=== PATIENT | female | born 1975 | race Caucasian/White ===

== ENCOUNTER → 2023-05-02 | Outpatient (CLI) | payer BC ==
[~2023-05-02] VITALS: Ht 157.5 cm; Wt 69.7 kg
[~2023-05-02] MED LIST: ALBU8.5H6; LEVO88CA4 PO; THRIVE
== END | disposition home or self-care (01) ==
LOC: PREOP 05:28
PROVIDERS: ATTEND Obstetrics & Gynecology
DX: Z01.818 Encounter for other preprocedural examination (principal)

== ENCOUNTER 2023-05-09 05:55 | Day surgery (SDC) | payer BC ==
[2023-05-09] VITALS (14 sets, daily range): BP systolic 83–152; BP diastolic 36–89
[~2023-05-09] VITALS: Ht 157.5 cm; Wt 69.7 kg
[2023-05-09] MEDS ORDERED: ceFAZolin INJECTION 2,000 MG in NS (IVPB) 50 ML 50 ML IV ONE (06:00)
[2023-05-09] MEDS: LACTATED RINGERS 1,000 ML 1,000 ML IV PRN ×2 (06:23→08:50)
[2023-05-09 06:36] LABS: BASOPHILS # (AUTO) 0.1 10^3/uL (0.0-0.1); BASOPHILS % (AUTO) 2 % (0-10); EOSINOPHILS # (AUTO) 1.1 10^3/uL (0.0-0.3); EOSINOPHILS % (AUTO) 13 % (0-10); HEMATOCRIT 41 % (35-52); HEMOGLOBIN 12.8 g/dL (11.5-16.0); LYMPHOCYTES # (AUTO) 2.2 10^3/uL (1.0-4.0); LYMPHOCYTES % (AUTO) 25 % (12-44); MEAN CORPUSCULAR HEMOGLOBIN 26 pg (25-34); MEAN CORPUSCULAR HGB CONC 32 g/dL (32-36); MEAN CORPUSCULAR VOLUME 83 fL (80-99); MEAN PLATELET VOLUME 9.6 fL (9.0-12.2); MONOCYTES # (AUTO) 0.7 10^3/uL (0.0-1.0); MONOCYTES % (AUTO) 8 % (0-12); NEUTROPHILS # (AUTO) 4.6 10^3/uL (1.8-7.8); NEUTROPHILS % (AUTO) 53 % (42-75); PLATELET COUNT 486 10^3/uL (130-400); WHITE BLOOD COUNT 8.7 10^3/uL (4.3-11.0)
[2023-05-09] MEDS ORDERED: BUPIVACAINE 0.25% 30 ML VIAL ONE (06:52)
[2023-05-09] MEDS ORDERED: dexAMETHasone INJ 10 MG/ML 1 ML VIAL ONE (06:53)
[2023-05-09] MEDS ORDERED: MIDAZOLAM INJ 2 MG/2 ML VIAL ONE (06:53)
[2023-05-09] MEDS ORDERED: GLYCOPYRROLATE INJ 0.2 MG/ML 2 ML VIAL ONE (06:53)
[2023-05-09] MEDS ORDERED: ROCURONIUM 50 MG/5 ML VIAL IV ONE ×2 (06:53→10:31)
[2023-05-09] MEDS ORDERED: fentaNYL INJECTION 100 MCG/2 ML VIAL ONE (06:53)
[2023-05-09] MEDS ORDERED: NEOSTIGMINE 1 MG/1ML 10 ML VIAL ONE (06:53)
[2023-05-09] MEDS ORDERED: ONDANSETRON INJECTION 4 MG/2 ML (SDV) ONE (06:53)
[2023-05-09] MEDS ORDERED: LIDOCAINE PF 2% 5 ML VIAL ONE (06:53)
[2023-05-09] MEDS ORDERED: proPOfol INJECTION 200 MG/20 ML VIAL IV ONE (06:53)
[2023-05-09 07:09] LABS: ANISOCYTOSIS SLIGHT; BASOPHILS % (MANUAL) 2 %; EOSINOPHILS % (MANUAL) 14 %; LYMPHOCYTES % (MANUAL) 24 %; MICROCYTOSIS SLIGHT; MONOCYTES % (MANUAL) 5 %; NEUTROPHILS % (MANUAL) 55 %
--- NOTE | 2023-05-09 07:25 | Progress Note-Pre Operative ---
Pre-Operative Progress Note Date of Available H&P: May 09, 2023 Date H&P Reviewed: May 09, 2023 Time H&P Reviewed: 07:00 History & Physical: H&P Reviewed, No changes noted Pre-Operative Diagnosis: AUB plan for RATLH possible BSO RONNIE MARIN DO May 09, 2023 07:25
--- NOTE | 2023-05-09 07:26 | OB/GYN Operative Report ---
Operative Report Date of Procedure:May 09, 2023 Preoperative Diagnosis: Abnormal uterine bleeding fibroids uterine enlargement Postoperative Diagnosis: Same Name of the Procedure: Robotic assisted Total laparoscopic hysterectomy with bilateral salpingectomy and cystoscopy Surgeon: Kelly Hitchcock Agriculture Professor(s): Anesthesia: MAURY Christianson DO Indications for Procedure: This 47yo has had a longstanding HO AUB and on US was discovered to have an enlarged uterus with multiple fibroids. Pt no longer desired fertility and elected to proceed with RATLH with possible BSO Findings of the Procedure: []enlarged uterus 278g with multiple fibroids the largest about 7cm in diameter Complications: None Disposition: Counts correct x2 Pt taken to RR in stable condition. Description of the Procedure: Informed consent was obtained and signed. The patient was taken to OR suite #2 placed under general anesthesia and then positioned in the dorsal lithotomy position. She was then prepped and draped the the usual sterile fashion. A timeout was performed. A pelvic exam was performed and the uterus was noted to be enlarged about 12-14wk size and irregularly shaped. A gómez catheter was placed into the bladder. A weighted speculum was placed into the vagina and a single tooth tenaculum was placed on the anterior lip of the cervix. The uterus sounded to 14cm. A stay suture was placed at 3 o'clock on the cervix of 3-0 vicryl. The os was dilated to allow passaged of a 10 Kaia manipulator which was placed without difficulty. Next attention was paid to the abdomen where we marked about 4 cm above the umbilicus and then an 8 cm from there to the right and to the left and then 8 cm for the fourth arm to the patient's left. These areas were injected with quarter percent plain Marcaine. The midline incision was made and using a Veress needle entered into the abdominal cavity without any difficulty. The abdomen was insufflated using carbon oxide gas and then using direct visualization placed the supraumbilical trocar in. The lateral incisions were made and the trocars were placed under direct visualization. An assistant center manager port was also made on the patient's lower right side. All trocars were then placed under direct visualization and the da Angelia robot was then ready to be docked. The patient was then placed in steep Trendelenburg position with a 27 degree angle and the da Angelia robot was then moved towards the patient. The robotic endoscope was then docked into robot arm #3. The da Angelia endoscope was then placed in the targeted organ to be removed and targeting was then performed. The rest of the robotic arms were then docked and the instruments were placed under direct visualization. Once this was done I discount and then proceeded to the surgeon console. Once I was on the surgeon console I was able to inspect the pelvis I was able to see both ureters and the pelvic sidewall and they were away from where we were going to be working. The fallopian tubes were identified and both ovaries were noted to be normal. The uterus was noted to be enlarged and irregularly shaped with multiple fibroids. Starting on the patient's right side the fallopian tube was grasped and reflected upward so that we could see the mesosalpinx and using the vessel sealer was cauterized and incised along the fallopian tube to the proximal end. The ovarian ligament was then cauterized and incised using the vessel sealer and the round ligament was cauterized and incised using the vessel sealer using the monopolar scissors the anterior posterior leaves of the broad ligament were the posterior leaf was incised down to just above the uterine artery and the anterior leaf was then cauterized and incised to the anterior side of the uterus to help create the bladder flap. The vessel sealer was then used to cauterize and incise along the sidewall of the uterus to the uterine artery and the uterine artery was cauterized and incised. Next attention was paid to the patient's left side and in similar fashion the fallopian tube was removed the ovarian ligament was cauterized and incised the round ligament was cauterized and incised and anterior posterior leaves of the broad ligament were cauterized and incised using the monopolar scissors and the bladder flap was created and was reflected off. Using the fourth arm to help retract because the uterus was so enlarged we were able to see our vaginal cuff and the Kaia underneath it. The vaginal occluder was then engaged with 60 cc of saline and using the monopolar scissors I created my vaginal cuff. I incised circumferentially around the cervix and remove the cervix from the vaginal cuff. The uterus was then removed from the pelvic cavity and the area was irrigated and noted to be hemostatic. The vaginal cuff was reapproximated using the locking suture in a running fashion and imbricated using the V locking suture for excellent hemostasis. We then proceeded to remove the suture under direct visualization and remove the instruments from the pelvic cavity under direct visualization. The robotic arms were undocked and the trocars were removed under direct visualization without any difficulty. The abdomen was desufflated and as much of the carbon dioxide gas was allowed to escape as possible. We then proceeded to the perineum where the Gómez catheter that had been placed earlier was removed and a cystoscopy was performed. The bladder was noted to be intact and both ureters were seen with urine eggressing from them. The Gómez catheter was then placed back inside the urinary bladder. Finally we reapproximated all of our incisions using 3-0 Monocryl and then sealed with Dermabond. The patient tolerated the procedure well and was taken to recovery room in stable condition. Estimated blood loss was 50 cc fluids 1700 cc urine output was 600 cc and irrigation was 200 cc. The uterine weight was 278 g KELLY HITCHCOCK DO May 09, 2023 07:26
[2023-05-09] MEDS: CLINDAMYCIN 900 MG/50 ML IVPB 50 ML IV ONE ×2 (09:55→15:09)
[2023-05-09] MEDS ORDERED: BUPIVACAINE 0.25% 30 ML VIAL INJ ONE (10:00)
[2023-05-09] MEDS ORDERED: PHENYLEPHRINE 100 MCG/ML 10 ML (ANESTHESIA) SYR ONE (11:16)
[2023-05-09] MEDS ORDERED: SEVOFLURANE (ULTANE) 15 ML INHAL SOLN ONE (11:20)
[2023-05-09] MEDS ORDERED: HYDROmorphone INJECTION 2 MG/ML VIAL IV ONE (11:45)
[2023-05-09] MEDS ORDERED: ONDANSETRON INJECTION 4 MG/2 ML (SDV) IVP PRN (11:45)
[2023-05-09] MEDS ORDERED: morphine INJ 10 MG/ML 1ML (SYR OR VIAL) IVP ONE (11:45)
--- NOTE | 2023-05-09 11:57 | Discharge Summary ---
Discharge Summary Hospital Course Problems Reviewed?: Yes Hospital Course Date of Admission: Admission Diagnosis : Family Physician/Provider: Date of Discharge: 05/09/23 Discharge Diagnosis: s/p RATLH BS cysto Hospital Course: Patient was admitted for a RAT with BS and cystoscopy secondary to her HO abnormal uterine bleeding and fibroids. She underwent the procedure and did very well. The uterus weighed 278gm in the OR (pathology report pending) She had extended observation and did well postoperatively and was able to urinate on her own and tolerated her diet. She was discharged to home with postoperative instructions and pain medications. Pt was instructed to f/u in 2wk. Labs and Pending Lab Test: Laboratory Tests 05/09/23 06:22: White Blood Count 8.7, Red Blood Count 4.91, Hemoglobin 12.8, Hematocrit 41, Mean Corpuscular Volume 83, Mean Corpuscular Hemoglobin 26, Mean Corpuscular Hemoglobin Concent 32, Red Cell Distribution Width 16.6H, Platelet Count 486H, Mean Platelet Volume 9.6, Immature Granulocyte % (Auto) 0, Neutrophils (%) ( Auto) 53, Lymphocytes (%) (Auto) 25, Monocytes (%) (Auto) 8, Eosinophils (%) (Auto) 13H, Basophils (%) (Auto) 2, Neutrophils # (Auto) 4.6, Lymphocytes # (Auto) 2.2, Monocytes # (Auto) 0.7, Eosinophils # (Auto) 1.1H, Basophils # (Auto) 0.1, Immature Granulocyte # (Auto) 0.0, Neutrophils % (Manual) 55, Lymphocytes % (Manual) 24, Monocytes % (Manual) 5, Eosinophils % (Manual) 14, Basophils % (Manual) 2, Anisocytosis SLIGHT, Microcytosis SLIGHT Home Meds Active Reported Ventolin Hfa (Albuterol Sulfate) 90 Mcg Hfa.aer.ad 1 PUFF = 90 MCG [Thrive] Levothyroxine (Levothyroxine Sodium) 88 Mcg Capsule 88 Mcg PO Patient Discharge Instructions DC to home Nothing in the vagina, no sex, tampons or douches May shower (no baths) f/u in 2wk. Activity: Activity as Tolerated Driving Instructions: No Driving for 1 Week NO SMOKING: NO SMOKING Nothing Inside Vagina: No Douching, No [place], No Tampons Discharge Diet: Regular Diet Symptoms to Report to : Constipation(Persistant), Fever Over 101 Degrees F, Pain/Pressure in Chest, Vaginal Discharge Foul, Dizziness/Fainting, Nausea/Vomiting For Any Problems or Questions: Contact Your Physician Infection Signs and Symptoms: Increased Redness, Foul Odor of Wound, Increased Drainage, Skin Itchy or Has a Rash, Increased Swelling, Temperature Above 101 F Operative Area Clean and Dry: Keep Incision Clean/Dry Stitches/Erhard/Dermabond: Dermabond Discharge Physical Examination Allergies: Coded Allergies: Penicillins (Verified Allergy, Unknown, Hives, 05/04/23) Sulfa (Sulfonamide Antibiotics) (Verified Allergy, Unknown, 05/04/23) SWELLING Vitals & I&Os Vital Signs Date Time Temp Pulse Resp B/P (MAP) Pulse Ox O2 Delivery O2 Flow Rate FiO2 05/09/23 11:34 36.1 20 128/61 (83) 100 OxyMask 8.00 05/09/23 06:10 74 Discharge Summary Date of Admission Date of Discharge Supervisory-Addendum Brief Verification & Attestation Participated in pt care: history, MDM, physical Personally performed: exam, history, MDM, supervision of care Care discussed with: Medical Student Procedures: n/a Results interpretation: Verified all documentation I personally saw and examined patient. RONNIE MARIN DO May 09, 2023 11:57
[2023-05-09] MEDS ORDERED: LACTATED RINGERS 1,000 ML 1,000 ML IV SCH (12:00)
[2023-05-09] MEDS ORDERED: morphine INJ 4 MG/ML 1 ML (VIAL/SYRINGE) IV PRN (12:00)
[2023-05-09] MEDS ORDERED: ACETAMINOPHEN 500 MG TABLET PO SCH (12:00)
[2023-05-09] MEDS ORDERED: NALOXONE 0.4 MG/ML 1 ML VIAL IV PRN (12:00)
[2023-05-09] MEDS ORDERED: ONDANSETRON 4 MG ORAL DISSOLVE TABLET PO PRN (12:00)
[2023-05-09] MEDS ORDERED: BENZOCAINE/MENTHOL (DERMOPLAST) 56 ML CAN TP PRN (12:00)
[2023-05-09] MEDS ORDERED: oxyCODONE IMMEDIATE RELEASE 5 MG TABLET PO PRN (12:00)
[2023-05-09] MEDS ORDERED: D5 LR 1,000 ML IV SOLN 1,000 ML IV SCH (12:00)
[2023-05-09] MEDS ORDERED: METOCLOPRAMIDE INJ 10 MG/2 ML IV PRN (12:00)
[2023-05-09] MEDS ORDERED: LORATADINE 10 MG TABLET PO PRN (12:00)
[2023-05-09] MEDS ORDERED: KETOROLAC INJ 30 MG/ML VIAL IV SCH (13:00)
[2023-05-09] MEDS ORDERED: IBUP-1780 PO (17:19)
[2023-05-09] MEDS ORDERED: OXC5T PO (17:19)
[2023-05-09] MEDS ORDERED: DOCU100C37 PO (17:19)
[2023-05-09] MEDS ORDERED: traZODone 50 MG (DESYREL) TAB PO SCH (21:00)
[2023-05-10] MEDS ORDERED: ENOXAPARIN 40 MG/0.4 ML SYRINGE SC SCH ×2 (06:00)
[2023-05-10] MEDS ORDERED: DOCUSATE SODIUM 100 MG CAPSULE PO SCH (09:00)
--- NOTE | 2023-05-10 12:53 | Anesthesia-General Post-Op ---
General Patient Condition Mental Status/LOC: Same as Preop Cardiovascular: Satisfactory Nausea/Vomiting: Absent Respiratory: Satisfactory Pain: Controlled Complications: Absent Post Op Complications Complications None Follow Up Care/Instructions Patient Instructions None needed. Anesthesia/Patient Condition Patient Condition Patient is doing well, no complaints, stable vital signs, no apparent adverse anesthesia problems. No complications reported per nursing. JANINA MARQUEZ CRNA May 10, 2023 12:53
[2023-05-10] MEDS ORDERED: IBUPROFEN 800 MG TABLET PO SCH (13:00)
== END 2023-05-09 19:45 | disposition home or self-care (01) ==
LOC: SDC 05:55 → WS 11:56 → SDC 19:45
PROVIDERS: ATTEND Obstetrics & Gynecology
DX: D25.1 Intramural leiomyoma of uterus (principal); N93.9 Abnormal uterine and vaginal bleeding, unspecified; N80.03 Adenomyosis of the uterus
CPT/HCPCS: 36415; 84703; 85007; 85027; 86850; 86900; 86901; 87081; 88307